=== PATIENT | female | born 1970 | race Caucasian/White ===

== ENCOUNTER → 2021-04-14 | Outpatient (CLI) | payer BC ==
[2021-04-14 09:10] VITALS: BP 120/76; PULSE 76; RESP 12; TEMP 97.9
--- NOTE | 2021-04-14 11:02 | P.GSHP ---
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 The patient herself did not feel anything in her breast. She had a digital screening mammogram performed on 02/18/2021 which revealed an area of concern in the right breast. She subsequently underwent an ultrasound which confirmed a 10 x 5 mm bilobed hypoechoic mass in the right breast at the 11 o'clock position 3 cm from the nipple. Core biopsy was performed which revealed invasive ductal carcinoma triple negative grade 3. Additionally she had an MRI performed which revealed a suspicious lymph node in the right axilla. A core biopsy was performed of this last week and results are not yet available. She has been seen by Dr. Hadley medical oncology at [facility]. She has also seen Dr. Rock. She also met with radiation oncology. Monday she had a port placed and biopsy of axillary node. She was recommended to have chem otherapy first even if the node was (-). She has never had surgery on her breasts before. She did not feel the lesion prior to the screening mammogram. She is not complaining of any trauma or infection in the breast. They discussed genetic testing. She would have to meet with a research methodologist. Caffeine: 1-2/cups of coffee.day nicotine: none chocolate: occasional Family history: paternal grandfather: colon cancer Hormonal History: menarche: 11 , breast fed: no, age at first : 16 D&C several years ago stopped periods at that time BCP: 2 years hormones: took natural for about two months Surgical history: D&C Fractured nose Medical History: none Social History: nicotine: none alcohol: occasional drugs: none - Constitutional Constitutional: Reports sweats - EENT Eyes: denies blurred vision, denies pain Ears: deny: decreased hearing, tinnitus Ears, nose, mouth and throat: Denies headache, Denies sore throat - Breasts Breasts: bilateral: as per HPI - Cardiovascular Cardiovascular: Denies chest pain, Denies shortness of breath - Respiratory Respiratory: Denies cough, Denies 7 - Gastrointestinal Gastrointestinal: Denies abdominal pain, Denies diarrhea, Denies nausea, Denies vomiting - Genitourinary (Female) Genitourinary: Denies dysuria, Denies hematuria - Menstruation Menstruation: Reports postmenopausal - Musculoskeletal Musculoskeletal: Denies myalgias - Integumentary Integumentary: Denies pruritus, Denies rash - Neurological Neurological: Denies numbness, Denies weakness - Psychiatric Psychiatric: Denies anxiety, Denies depression - Endocrine Endocrine: Reports weight change, Denies fatigue - Hematologic/Lymphatic Comment: none - Allergic/Immunologic Comment: compazine Allergic/Immunologic: Reports as per HPI Past Medical History Additional Past Medical History / Comment(s): Anemia; RT breast cancer 03/29/21; History of Any Multi-Drug Resistant Organisms: None Reported Additional Past Surgical History / Comment(s): D&C; nasal surgery; RT breast core biopsy 03/29/21; Additional Past Anesthesia/Blood Transfusion Reaction / Comment(s): Hard to wake up Past Psychological History: No Psychological Hx Reported Smoking Status: Never smoker Past Alcohol Use History: Occasional Additional Past Alcohol Use History / Comment(s): Never smoker Past Drug Use History: None Reported Medications and Allergies Home Medications Medication Instructions Recorded Confirmed Type No Known Home Medications 04/14/21 04/14/21 History Allergies Allergy/AdvReac Type Severity Reaction Status Date / Time prochlorperazine AdvReac Anxious Unverified 04/14/21 09:02 [From Compazine] feeling Surgical - Exam Vital Signs Temp Pulse Resp BP Pulse Ox 97.9 F 76 12 120/76 96 04/14/21 09:02 04/14/21 09:02 04/14/21 09:02 04/14/21 09:02 04/14/21 09:02 BMI 23 - General no distress - Eyes normal ocular movement - ENT no hearing loss, no congestion - Neck no masses, trachea midline - Respiratory normal respiratory effort, clear to auscultation - Cardiovascular Rhythm: regular Heart Sounds: normal: S1, S2 - Abdomen Abdomen: soft, non tender, no guarding, no rigid, no rebound - Integumentary normal turgor - Neurologic no disoriented, no combative - Musculoskeletal normal gait, normal posture - Psychiatric oriented to time, oriented to person, oriented to place, speech is normal, memory intact Breast Exam: BRA: 36B inspection: Bilateral grade 2 ptosis Palpation: Right breast: Mild ecchymosis at core biopsy site, increased fullness 11 o'clock position, fibrocystic breast changes, no other dominant masses or nodules of concern Right axilla: Positive adenopathy, core biopsy site mild ecchymosis Left breast: No dominant masses or nodules of concern, multiple positional exam Left axilla: No adenopathy of concern Results Mammogram, ultrasound, and MRI reviewed with Dr. York from radiology Assessment and Plan Assessment: Impression: 1. Stage IB or IIB right breast cancer 2. pre-operative chemotherapy 3. awaiting node biopsy results Plan: 1. Present at tumor board 2. follow up 1/2 way into chemotherapy and repeat ultrasound of breast and axilla 3. BRCA testing DR. Vang, Dr. Dobbins, Dr. Hadley We have discussed the stage of the tumor. We have discussed treatment options. We discussed surgical options of the breast ranging from mastectomy plus or minus reconstruction to lumpectomy with hyperplastic tissue transfer. In addition we have discussed sentinel node biopsy using a dual tracer versus low axillary node dissection. Final recommendations and surgery will be made after chemotherapy is completed. She understands risks and benefits and is going to proceed with the chemotherapy in the near future.
== END ==
LOC: WWCWWP 08:38
PROVIDERS: ATTEND Surgery
DX: C50.411 Malignant neoplasm of upper-outer quadrant of right female breast (principal); Z88.8 Allergy status to other drugs, medicaments and biological substances